=== PATIENT | male | born 1985 | race Caucasian/White ===

== ENCOUNTER 2017-12-15 04:53 | Emergency (ER) | payer SELFPAY ==
[2017-12-15] MEDS ORDERED: LIDOCAINE 2% VISCOUS SOLN 20 ML UDCUP PO ONE (05:22)
--- NOTE | 2017-12-15 05:22 | ER Document Report ---
HPI - HPI Pain Level: 5 Notes: Patient is a 32-year-old male with no significant past medical history presents to the ED complaining of dental pain to #92-3 days. Patient states that he was planning on visiting a dentist on Tuesday for treatment. Patient states that he has not noticed any obvious swelling, abscess, or purulent discharge. He is otherwise still eating and drinking without difficulties. He is urinating normally and having normal bowel movements. Denies any other recent illness. Denies any allergies to antibiotics. Denies any headache, fever, head injury, neck pain, URI, sore throat, chest pain, palpitations, syncope, cough, shortness of breath, wheeze, dyspnea, abdominal pain, nausea/vomiting/ diarrhea, urinary retention, dysuria, hematuria, or rash. - ROS Systems Reviewed and Negative: Yes All other systems reviewed and negative - EENT EENT: DENIES: Sore Throat, Ear Pain, Eye problems - NEURO Neurology: DENIES: Headache - CARDIOVASCULAR Cardiovascular: DENIES: Chest pain - RESPIRATORY Respiratory: DENIES: Trouble Breathing, Coughing - GASTROINTESTINAL Gastrointestinal: DENIES: Abdominal Pain, Black / Bloody Stools - URINARY Urinary: DENIES: Dysuria, Urgency, Frequency - MUSCULOSKELETAL Musculoskeletal: DENIES: Extremity pain Past Medical History - Social History Smoking Status: Current Every Day Smoker Frequency of alcohol use: None Drug Abuse: None Family History: Reviewed & Not Pertinent, Other - none Patient has suicidal ideation: No Patient has homicidal ideation: No Renal/ Medical History: Denies: Hx Peritoneal Dialysis - Immunizations Immunizations up to date: Yes Hx Diphtheria, Pertussis, Tetanus Vaccination: No Vertical Provider Document - CONSTITUTIONAL Agree With Documented VS: Yes Notes: PHYSICAL EXAMINATION: GENERAL: Well-appearing, well-nourished and in no acute distress. HEAD: Atraumatic, normocephalic. EYES: Pupils equal round and reactive to light, extraocular movements intact, sclera anicteric, conjunctiva are normal. ENT: EAC clear b/l. TM's intact b/l without erythema, fluid, or perforation. Nares patent and without discharge. oropharynx clear without exudates. No tonsilar hypertrophy or erythema. Moist mucous membranes. No sinus tenderness. Uvula midline. No palatine shift. No tongue protrusion. No respiratory compromise. Mouth: Poor dentition. + moderate/severe decay and mild gingivitis. No obvious abscess or discharge noted. No facial swelling. + tenderness to tooth #9. NECK: Normal range of motion, supple without lymphadenopathy. No rigidity/ meningismus. LUNGS: Breath sounds clear to auscultation bilaterally and equal. No wheezes rales or rhonchi. HEART: Regular rate and rhythm without murmurs, rubs, gallops. NEUROLOGICAL: Cranial nerves grossly intact. Normal speech, normal gait. Normal sensory, motor exams PSYCH: Normal mood, normal affect. SKIN: Warm, Dry, normal turgor, no rashes or lesions noted. - INFECTION CONTROL TRAVEL OUTSIDE OF THE [place] IN LAST 30 DAYS: No - RESPIRATORY O2 Sat by Pulse Oximetry: 97 Course - Re-evaluation Re-evalutation: 12/15/17 05:20 Patient is an afebrile, well-hydrated, 32-year-old male who presents to the ED with dental pain, suspect nerve root etiology versus infection. Vitals are acceptable. PE is otherwise unremarkable. No labs or imaging warranted at this time based on H&P. Low suspicion for any meningitis, sepsis, peritonsillar /pharyngeal abscess, respiratory compromise, Silas's, temporal arteritis, or other emergent systemic condition at this time. Patient is aware this condition can change from initial presentation and he needs to monitor symptoms closely. I will send him home with a prescription for penicillin and viscous lidocaine. Conservative measures otherwise for symptoms. Call to schedule an appointment with a dentist for further evaluation and management. Recheck with your PCM this week as well. Return to the ED with any worsening/concerning symptoms otherwise as reviewed in discharge. Patient is in agreement. - Vital Signs Vital signs: Temp Pulse Resp BP Pulse Ox 97.8 F 88 16 132/82 H 97 12/15/17 04:58 12/15/17 04:58 12/15/17 04:58 12/15/17 04:58 12/15/17 04:58 Discharge - Discharge Clinical Impression: Toothache Condition: Stable Disposition: HOME, SELF-CARE Instructions: Penicillin V K (OM), Toothache ([facility]) Additional Instructions: [place] and floss twice daily Maintain fluid intake Take antibiotics as directed Mouthwash, salt water gargles, peroxide rinse as needed Tylenol/ibuprofen as needed Recheck with PCM this week Call today/tomorrow and schedule an appointment with your dentist for further evaluation Return to the ED with any worsening symptoms and/or development of fever, headache, facial swelling, swelling of lips/tongue/throat, trouble swallowing, drooling, hoarseness, neck pain/stiffness, chest pain, palpitations, syncope, shortness of breath, trouble breathing, abdominal pain, n/v/d, numbness/tingling , or other worsening symptoms that are concerning to you. Prescriptions: Penicillin V Potassium [Penicillin Vk 250 mg Tablet] 500 mg PO BID #40 tablet Forms: Elevated Blood Pressure, Smoking Cessation Education Referrals: [facility] [Provider Group] - Follow up as needed [facility] [Provider Group] - Follow up as needed
[2017-12-15 06:41] VITALS: BP 144/83
== END 2017-12-15 06:27 | disposition home or self-care (01) ==
LOC: ER 04:53
DX: K02.9 Dental caries, unspecified (principal); K05.10 Chronic gingivitis, plaque induced; K08.89 Other specified disorders of teeth and supporting structures; F17.200 Nicotine dependence, unspecified, uncomplicated
CPT/HCPCS: 99282; J3490

== ENCOUNTER 2018-07-04 20:30 | Emergency (ER) | payer SELFPAY ==
[2018-07-04] MEDS ORDERED: FENTANYL CITRATE INJ/PF 100 MCG/2 ML AMPUL IV ONE (20:58)
--- NOTE | 2018-07-04 21:04 | ER Document Report ---
ED General - General TRAVEL OUTSIDE OF THE [place] IN LAST 30 DAYS: No <ROBBI SAL - Last Filed: 07/05/18 07:19> <ABDIEL DAY - Last Filed: 07/05/18 19:22> - General Stated Complaint: FOOT PAIN Time Seen by Provider: 07/04/18 20:40 - HPI Notes: Patient is a 33-year-old male with no significant past medical history who presents to the ED by EMS and [facility] ED after being found in the [place] after 4 days. Patient was a missing person at that time. Patient was found naked and excoriated throughout his body. Patient states that he was running from his qmlgoqb-hq-oan who tried to kill him with rat poison. Patient states that he has severe pain in his feet as he was barefoot throughout the buck and has thorns everywhere. Patient states that he is hungry and thirsty as well. He does have some soreness generalized with his chest and abdomen as well. JVD states that he has been having hallucinations. Patient is adamantly denying any drug use. Denies any headache, fever, head injury, neck pain, changes in vision/speech/hearing, URI, sore throat, palpitations, syncope, cough, shortness of breath, wheeze, dyspnea, diarrhea, urinary retention, dysuria, hematuria, loss of control of bowel or bladder, numbness/tingling, saddle anesthesia, muscle paralysis/weakness. Speaking with the booking police officer he was called to an [facility] residents for a white male walking around naked. He found the patient was very cooperative. He did tell the booking police officer that what triggered his event was walking in on his [id number], whom he idolizes, in an orgy. He told him that he was convinced that his aptyrlj-zr-lxd was trying to kill him at that point and poisoned him with rat poison. The booking police officer did notice that he was carrying around a jug of water, but offered a new bottle. Please officer states that he witnessed the patient listening for the crack of the seal and then sniffing the In making the booking police officer shined a light on the water. After he deemed it safe, he drink the entire bottle. Please officer states that he has been acting very paranoid and anxious. (ROBBI SAL) - Related Data Allergies/Adverse Reactions: codeine [Codeine] Allergy (Verified 09/15/15 06:50) Past Medical History - Social History Smoking Status: Unknown if Ever Smoked Family History: Reviewed & Not Pertinent, Other - none Renal/ Medical History: Denies: Hx Peritoneal Dialysis - Immunizations Immunizations up to date: Yes Hx Diphtheria, Pertussis, Tetanus Vaccination: No <ROBBI SAL - Last Filed: 07/05/18 07:19> Review of Systems - Review of Systems -: Yes All other systems reviewed and negative <ROBBI SAL - Last Filed: 07/05/18 07:19> Physical Exam <ROBBI SAL - Last Filed: 07/05/18 07:19> <ABDIEL DAY - Last Filed: 07/05/18 19:22> - Vital signs Vitals: Temp Pulse Resp BP Pulse Ox 98.2 F 118 H 20 130/90 H 100 07/04/18 20:40 07/04/18 20:40 07/04/18 20:40 07/04/18 20:40 07/04/18 20:40 - Notes Notes: PHYSICAL EXAMINATION: GENERAL: Pt does not appear well. He has exoriations covering his entire body and thorns embedded in the soles of his feet. His lips look dry and his fingers /toes are pruned. A&Ox4. Answers questions appropriately. He keeps mentioning that his brother in law could not kill him during my eval. HEAD: Atraumatic, normocephalic. Non-tender. EYES: Pupils equal round and reactive to light, extraocular movements intact, sclera anicteric, conjunctiva are normal. No nystagmus. vis carter intact. ENT: EAC clear b/l. TM's intact b/l without erythema, fluid, or perforation. Nares patent and without discharge. oropharynx clear without exudates. No tonsilar hypertrophy or erythema. Moist mucous membranes. NECK: Normal range of motion, supple without lymphadenopathy. No rigidity/ meningismus. No midline tenderness. LUNGS: Breath sounds clear to auscultation bilaterally and equal. No wheezes rales or rhonchi. HEART: Regular rate and rhythm without murmurs, rubs, gallops. ABDOMEN: Soft, nondistended abdomen. No guarding, no rebound. Normal bowel sounds present. No CVA tenderness bilaterally. + generalized tenderness. Musculoskeletal: Ext b/l: FROM to passive/active. Strength 5+/5. No deficits noted. No bony tenderness of extremities. Extremities: No cyanosis, clubbing, or edema b/l. Peripheral pulses 2+. Capillary refill less than 2 seconds. NEUROLOGICAL: NIH 0. GCS 15. Cranial nerves grossly intact. Normal speech. Normal sensory, motor exams. Reflexes 2+ b/l. TRINITY's negative. Pronator drift negative. Heel/ricardo, finger/nose wnl. Rhomberg neg. PSYCH: anxious, acting paranoid SKIN: see above. + generalized maculopapular rash noted. excoriations everywhere. embedded thorns in his feet. (ROBBI SAL) Course - Laboratory Result Diagrams: 07/04/18 21:45 07/05/18 02:16 <ROBBI SAL - Last Filed: 07/05/18 07:19> - Laboratory Result Diagrams: 07/05/18 17:26 07/05/18 17:26 <ABDIEL DAY - Last Filed: 07/05/18 19:22> - Re-evaluation Re-evalutation: 07/04/18 21:55 Dr. Vieira was consulted who also eval'd the patient. Labs and imaging ordered. Patient possibly meets IVC protocol for danger to self for unpredictable thoughts/behavior with associated paranoia/anxiety. We will have Psych eval in the morning if he is still here. Haldol, antibiotics, and fluids have also been ordered. We will start trying to get the obvious thorns from his feet, but will not dig for the embedded pieces. This patient will most likely be a medical admit. 07/05/18 00:21 pt has a significant uremia and JOSE LUIS with elevated CK and LFT's, hypernatremia/ kalemia, lactic acidosis, leukocytosis, and a gap. Fluids have been going since arrival. pt is currently comfortable. Vitals acceptable. Reviewed with our hospitalist- no nephro and pt will need dialysis. Recommends transfer. Spoke with Nat Hussein, Dr. Warren, who accepted pt, but is on a wait list. Spoke with Kishor and am awaiting a call back. 07/05/18 01:20 Spoke with Kishor Cornell, who would like another BMP performed. Consider admit to our hospital with improvement as she believes fluids is all he needs and does not necessarily warrant dialysis at this time. We are to call [facility] back pending lab result, but they are willing to accept if needed. 07/05/18 05:50 BMP shows some improvement in the Creatinine and potassium. [facility] Foreman, called me back and accepted patient. Pt is awake and requesting food and water. He would also prefer to go to [place] at this time so we will cancel the [facility] transfer. Vitals are acceptable. Pt has no new concerns or complaints. 07/05/18 07:03 Transfer of care at bedside to Donnell Day PA-C. (ROBBI SAL) 07/05/18 08:51 This is Herbert Day physician environmental services assistant I have taken over care of this patient from Robbi Sal nighttime APC. Robbi has at this time Relayed patient's history to me and plan of care. We are awaiting transfer of patient to [place] secondary to renal failure and psychiatric counseling. On my exam this morning patient is awake and alert and answering questions appropriately. Physical exam also shows him to have multiple abrasions and scratches extending over all the body. This still appears to be some small splinters or thistles in the bottom of his feet. Currently patient states he is feeling okay and he is looking forward to his transfer to [place]. We will reassess him prior to his discharge and transfer to [place] 07/05/18 19:17 This is Herbert Day physician environmental services assistant. I have been taking care of patient throughout the day and he is finally been accepted to [facility] and is preparing to be transported. I have checked in on patient several times today he has been resting comfortably and is not as of most recently approximately 30 minutes ago I have rechecked on him again talking with him after he received pain medication. I have been in earlier patient was getting a little upset and agitated his pain level was increasing so I gave him 5 of morphine IV along with 25 of Benadryl. He relax substantially. So I have checked on him recently I am giving him clearance to be transported from our facility to [facility] for further care. He is stable for this trip by EMS. (ABDIEL DAY) - Vital Signs Vital signs: Temp Pulse Resp BP Pulse Ox 97.5 F 103 H 15 135/93 H 99 07/05/18 17:16 07/05/18 00:01 07/05/18 18:01 07/05/18 18:00 07/05/18 18:01 - Laboratory Laboratory results interpreted by me: 07/04/18 07/04/18 07/04/18 21:45 21:45 21:45 WBC 21.2 H Hgb RDW 14.1 H Seg Neutrophils % Seg Neuts % (Manual) 82 H Band Neutrophils % 1 L Lymphocytes % Lymphocytes % (Manual) 7 L Absolute Neutrophils Abs Neuts (Manual) 17.6 H Abs Monocytes (Manual) 1.7 H PT VBG pCO2 VBG HCO3 Sodium 151.9 H Potassium 5.9 H Chloride 111 H Carbon Dioxide 17 L Anion Gap 24 H BUN 151 H Creatinine 9.01 H Est GFR ( Amer) 8 L Est GFR (Non-Af Amer) 7 L Glucose Lactic Acid 2.2 H Magnesium 4.0 H Total Bilirubin 1.4 H Direct Bilirubin 0.8 H AST 138 H ALT 116 H Creatine Kinase 7499 H Total Protein 8.5 H Urine Protein Urine Glucose (UA) Urine Ketones Urine Blood 07/04/18 07/04/18 07/05/18 21:45 22:52 02:16 WBC Hgb RDW Seg Neutrophils % Seg Neuts % (Manual) Band Neutrophils % Lymphocytes % Lymphocytes % (Manual) Absolute Neutrophils Abs Neuts (Manual) Abs Monocytes (Manual) PT 15.6 H VBG pCO2 34.9 L VBG HCO3 16.9 L Sodium 152.5 H Potassium 5.5 H Chloride 115 H Carbon Dioxide 19 L Anion Gap BUN 148 H Creatinine 6.88 H Est GFR ( Amer) 11 L Est GFR (Non-Af Amer) 9 L Glucose 113 H Lactic Acid Magnesium Total Bilirubin Direct Bilirubin AST ALT Creatine Kinase Total Protein Urine Protein Urine Glucose (UA) Urine Ketones Urine Blood 07/05/18 07/05/18 07/05/18 03:44 17:26 17:26 WBC 11.9 H Hgb 13.2 L RDW Seg Neutrophils % 79.6 H Seg Neuts % (Manual) Band Neutrophils % Lymphocytes % 10.2 L Lymphocytes % (Manual) Absolute Neutrophils 9.4 H Abs Neuts (Manual) Abs Monocytes (Manual) PT VBG pCO2 VBG HCO3 Sodium 146.9 H Potassium Chloride 109 H Carbon Dioxide Anion Gap BUN 109 H D Creatinine 3.47 H Est GFR ( Amer) 25 L Est GFR (Non-Af Amer) 20 L Glucose 139 H Lactic Acid Magnesium Total Bilirubin Direct Bilirubin AST 103 H ALT 93 H Creatine Kinase Total Protein Urine Protein 100 H Urine Glucose (UA) 150 H Urine Ketones TRACE H Urine Blood LARGE H Critical Care Note - Critical Care Note Total time excluding time spent on procedures (mins): 65 - >60 minutes <ROBBI SAL - Last Filed: 07/05/18 07:19> Discharge <ROBBI SAL - Last Filed: 07/05/18 07:19> <ABDIEL DAY - Last Filed: 07/05/18 19:22> - Discharge Clinical Impression: JOSE LUIS (acute kidney injury), Uremia, Hypernatremia, Hyperkalemia Rhabdomyolysis Qualifiers: Rhabdomyolysis type: non-traumatic Qualified Code(s): M62.82 - Rhabdomyolysis Leukocytosis Qualifiers: Leukocytosis type: unspecified Qualified Code(s): D72.829 - Elevated white blood cell count, unspecified Condition: Stable Disposition: [facility]
[2018-07-04] MEDS ORDERED: HALOPERIDOL LACTATE INJ 5 MG/1 ML VIAL IV ONE (21:39)
[2018-07-04] MEDS ORDERED: CEPHALEXIN 500 MG CAPSULE PO ONE (21:43)
[2018-07-04] MEDS: NORMAL SALINE 1000 ML 1,000 ML IV PRN ×2 (21:43→23:15)
[2018-07-04 22:33] LABS: HEMATOCRIT 45.2 % (37.9-51.0); HEMOGLOBIN 15.2 g/dL (13.5-17.0); MEAN CORPUSCULAR HEMOGLOBIN 29.9 pg (27.0-33.4); MEAN CORPUSCULAR HGB CONC 33.6 g/dL (32.0-36.0); MEAN CORPUSCULAR VOLUME 89 fl (80-97); PLATELET COUNT 339 10^3/uL (150-450); RED BLOOD COUNT 5.07 10^6/uL (4.35-5.55); RED CELL DISTRIBUTION WIDTH 14.1 % (11.5-14.0); WHITE BLOOD COUNT 21.2 10^3/uL (4.0-10.5)
[2018-07-04 22:36] LABS: INTERNATIONAL RATION (INR) 1.18; PROTHROMBIN TIME 15.6 SEC (11.4-15.4)
[2018-07-04 22:37] LABS: PARTIAL THROMBOPLASTIN TIME 32.6 SEC (23.5-35.8)
[2018-07-04 22:45] LABS: ALANINE AMINOTRANSFERASE 116 U/L (21-72); ALKALINE PHOSPHATASE 84 U/L (38-126); ASPARTATE AMINO TRANSFERASE 138 U/L (17-59); BILIRUBIN,DIRECT 0.8 mg/dL (0.0-0.4); BILIRUBIN,TOTAL 1.4 mg/dL (0.2-1.3); CALCIUM 9.2 mg/dL (8.4-10.2); GLUCOSE 106 mg/dL (75-110); POTASSIUM 5.9 mmol/L (3.6-5.0); TOTAL PROTEIN 8.5 g/dL (6.3-8.2)
[2018-07-04 22:49] LABS: CARBON DIOXIDE 17 mmol/L (22-30); CHLORIDE 111 mmol/L (98-107); SODIUM 151.9 mmol/L (137-145)
[2018-07-04 22:52] LABS: ABSOLUTE LYMPHOCYTES# (MANUAL) 1.9 10^3/uL (0.5-4.7); ABSOLUTE MONOCYTES # (MANUAL) 1.7 10^3/uL (0.1-1.4); ABSOLUTE NEUTROPHILS# (MANUAL) 17.6 10^3/uL (1.7-8.2); BAND NEUTROPHILS % (MANUAL) 1 % (3-5); BASOPHILS % (MANUAL) 0 % (0-2); EOSINOPHILS % (MANUAL) 0 % (0-6); LYMPHOCYTES % (MANUAL) 7 % (13-45); MONOCYTES % (MANUAL) 8 % (3-13); SEGMENTED NEUTROPHILS % (MAN) 82 % (42-78); TOTAL CELLS COUNTED 100
[2018-07-04 22:54] LABS: ANISOCYTOSIS SLIGHT; PLATELET COMMENT ADEQUATE
[2018-07-04 23:00] LABS: ALCOHOL < 10 mg/dL (NONE DETECTED); ANION GAP 24 (5-19); BLOOD UREA NITROGEN 151 mg/dL (7-20)
[2018-07-04 23:24] LABS: CREATINE KINASE 7499 U/L (55-170)
--- NOTE | 2018-07-04 23:54 | RADIOLOGY REPORT (SQ) ---
XR CHEST 1 VIEW HISTORY: Chest pain. COMPARISON: 03/05/2015 FINDINGS/IMPRESSION: Normal cardiomediastinal silhouette. Pulmonary vasculature is unremarkable. Lungs are clear. No pleural effusion or pneumothorax is seen. No acute osseous findings.
[2018-07-05 00:02] LABS: VENOUS BLOOD BASE EXCESS -8.4 mmol/L; VENOUS BLOOD HCO3 16.9 mmol/L (20-32); VENOUS BLOOD PCO2 34.9 mmHg (35-63); VENOUS BLOOD PH 7.3 (7.30-7.42)
[2018-07-05 00:04] LABS: LIPASE 124.2 U/L (23-300)
[2018-07-05] MEDS ORDERED: NORMAL SALINE 1000 ML 1,000 ML IV PRN (01:19)
[2018-07-05] MEDS ORDERED: NORMAL SALINE 1000 ML 1,000 ML IV ONE (01:19)
[2018-07-05 02:56] LABS: ANION GAP 19 (5-19); CALCIUM 8.5 mg/dL (8.4-10.2); CARBON DIOXIDE 19 mmol/L (22-30); CHLORIDE 115 mmol/L (98-107); GLUCOSE 113 mg/dL (75-110); POTASSIUM 5.5 mmol/L (3.6-5.0); SODIUM 152.5 mmol/L (137-145)
[2018-07-05 03:13] LABS: BLOOD UREA NITROGEN 148 mg/dL (7-20)
[2018-07-05] MEDS ORDERED: DEXTROSE 5%-1/2 NORMAL SALINE 500 ML IV PRN (03:18)
[2018-07-05 04:52] LABS: APPEARANCE,URINE TURBID; BILIRUBIN,URINE NEGATIVE (NEGATIVE); GLUCOSE, URINE 150 mg/dL (NEGATIVE); KETONES,URINE TRACE mg/dL (NEGATIVE); LEUKOCYTE ESTERASE,URINE NEGATIVE (NEGATIVE); NITRITE,URINE NEGATIVE (NEGATIVE); PROTEIN,URINE 100 mg/dL (NEGATIVE); UROBILINOGEN,URINE NEGATIVE mg/dL (<2.0)
[2018-07-05 04:53] LABS: COLOR,URINE YELLOW
[2018-07-05 05:06] LABS: URINE AMPHETAMINES SCREEN NEGATIVE; URINE BARBITURATES SCREEN NEGATIVE; URINE BENZODIAZEPINES SCREEN NEGATIVE; URINE COCAINE SCREEN NEGATIVE; URINE MARIJUANA (THC) SCREEN UNCONFIRMED POSITIVE; URINE METHADONE SCREEN NEGATIVE; URINE PHENCYCLIDINE SCREEN NEGATIVE
[2018-07-05] MEDS ORDERED: CEPHALEXIN 500 MG CAPSULE PO ONE (07:11)
[2018-07-05] MEDS ORDERED: DIPH/PERTUSS(ACELL)/TETANUS VAC/PF 0.5 ML SYR (>=10YO) IM ONE (07:18)
--- NOTE | 2018-07-05 07:55 | EKG REPORT ---
SEVERITY:- OTHERWISE NORMAL ECG - SINUS TACHYCARDIA ST ELEV, PROBABLE NORMAL EARLY REPOL PATTERN : Confirmed by: Liudmila Larose MD 05-Jul-2018 07:55:04
[2018-07-05] MEDS ORDERED: 1/2 NORMAL SALINE 1,000 ML IV ONE (08:50)
[2018-07-05] MEDS ORDERED: HYDROCODONE/ACETAMINOPHEN 5-325 MG TABLET PO ONE (10:11)
[2018-07-05] MEDS ORDERED: MORPHINE SULFATE 10 MG/ML INJ IV ONE (17:06)
[2018-07-05] MEDS ORDERED: DIPHENHYDRAMINE HCL 50 MG/ML VIAL IV ONE (17:07)
[2018-07-05 17:33] LABS: ABSOLUTE BASOPHILS # (AUTO) 0.1 10^3/uL (0.0-0.2); ABSOLUTE EOSINOPHILS # (AUTO) 0.3 10^3/uL (0.0-0.6); ABSOLUTE LYMPHOCYTES (AUTO) 1.2 10^3/uL (0.5-4.7); ABSOLUTE MONOCYTES (AUTO) 0.9 10^3/uL (0.1-1.4); ABSOLUTE NEUT (AUTO) 9.4 10^3/uL (1.7-8.2); BASOPHILS % (AUTO) 0.5 % (0-2); EOSINOPHILS % (AUTO) 2.5 % (0-6); HEMATOCRIT 39.1 % (37.9-51.0); HEMOGLOBIN 13.2 g/dL (13.5-17.0); LYMPHOCYTES % (AUTO) 10.2 % (13-45); MEAN CORPUSCULAR HGB CONC 33.6 g/dL (32.0-36.0); MEAN CORPUSCULAR VOLUME 89 fl (80-97); MONOCYTES % (AUTO) 7.2 % (3-13); PLATELET COUNT 270 10^3/uL (150-450); RED BLOOD COUNT 4.39 10^6/uL (4.35-5.55); RED CELL DISTRIBUTION WIDTH 13.8 % (11.5-14.0); SEGMENTED NEUTROPHILS % (AUTO) 79.6 % (42-78); TOTAL CELLS COUNTED % (AUTO) 100 %; WHITE BLOOD COUNT 11.9 10^3/uL (4.0-10.5)
[2018-07-05 17:48] LABS: ALANINE AMINOTRANSFERASE 93 U/L (21-72); ALBUMIN 4.1 g/dL (3.5-5.0); ALKALINE PHOSPHATASE 77 U/L (38-126); ANION GAP 13 (5-19); ASPARTATE AMINO TRANSFERASE 103 U/L (17-59); BILIRUBIN,DIRECT 0.4 mg/dL (0.0-0.4); BILIRUBIN,TOTAL 0.9 mg/dL (0.2-1.3); CALCIUM 9.2 mg/dL (8.4-10.2); CARBON DIOXIDE 25 mmol/L (22-30); CHLORIDE 109 mmol/L (98-107); GLUCOSE 139 mg/dL (75-110); SODIUM 146.9 mmol/L (137-145); TOTAL PROTEIN 7.1 g/dL (6.3-8.2)
[2018-07-05 18:03] LABS: POTASSIUM 4.6 mmol/L (3.6-5.0)
[2018-07-05 18:19] LABS: BLOOD UREA NITROGEN 109 mg/dL (7-20)
[2018-07-05 20:16] VITALS: BP 127/76
== END 2018-07-05 20:57 | disposition short-term general hospital (02) ==
LOC: EEVIPCON 20:30 → ER 20:30
DX: N17.9 Acute kidney failure, unspecified (principal); E87.0 Hyperosmolality and hypernatremia; E87.6 Hypokalemia; E87.5 Hyperkalemia; M62.82 Rhabdomyolysis; D72.829 Elevated white blood cell count, unspecified; E87.2 Acidosis; F22 Delusional disorders; F41.9 Anxiety disorder, unspecified; R79.89 Other specified abnormal findings of blood chemistry; S90.852A Superficial foreign body, left foot, initial encounter; S90.851A Superficial foreign body, right foot, initial encounter; T14.8XXA Other injury of unspecified body region, initial encounter; X58.XXXA Exposure to other specified factors, initial encounter; M79.671 Pain in right foot; M79.672 Pain in left foot; R10.817 Generalized abdominal tenderness; R09.89 Other specified symptoms and signs involving the circulatory and respiratory systems; R21 Rash and other nonspecific skin eruption; Z88.5 Allergy status to narcotic agent
CPT/HCPCS: 93005; 99285; 96361; 90471; 96374; 96375; 36415; 87040; 80307 ×2; 82550; 83605; 83690; 83735; 85025; 85610; 85730; 87077; 80048; 80053; 81001; 87186; 82803; 71045; 90715; 93010; J1200; J3010; J1630; J2270

== ENCOUNTER 2018-12-19 13:32 | Emergency (ER) | payer SELFPAY ==
--- NOTE | 2018-12-19 16:00 | EKG REPORT ---
SEVERITY:- NORMAL ECG - SINUS RHYTHM ST ELEV, PROBABLE NORMAL EARLY REPOL PATTERN : Confirmed by: Jl Lopez MD 19-Dec-2018 15:59:44
[2018-12-19] MEDS ORDERED: ASPIRIN 81 MG TABLET, CHEWABLE PO ONE (16:05)
--- NOTE | 2018-12-19 16:09 | ER Document Report ---
ED Medical Screen (RME) - General Chief Complaint: Arm Pain Stated Complaint: LEFT ARM PAIN Time Seen by Provider: 12/19/18 16:04 Mode of Arrival: Ambulatory Information source: Patient Notes: 33-year-old very pleasant male with history of endocarditis presents with chest pain and left arm pain. Please see below note from previous visit. Patient did have a transfer to [facility] in June 2018 after being found after missing for 4 days. Previous provider note Patient is a 33-year-old male with no significant past medical history who presents to the ED by EMS and [facility] ED after being found in the buck after 4 days. Patient was a missing person at that time. Patient was found naked and excoriated throughout his body. Patient states that he was running from his znxbqwb-ve-ask who tried to kill him with rat poison. Patient states that he has severe pain in his feet as he was barefoot throughout the buck and has thorns everywhere. Patient states that he is hungry and thirsty as well. He does have some soreness generalized with his chest and abdomen as well. JVD states that he has been having hallucinations. Patient is adamantly denying any drug use. Denies any headache, fever, head injury, neck pain, changes in vision/speech/hearing, URI, sore throat, palpitations, syncope, cough, shortness of breath, wheeze, dyspnea, diarrhea, urinary retention, dysuria, hematuria, loss of control of bowel or bladder, numbness/tingling, saddle anesthesia, muscle paralysis/weakness. Speaking with the staff electronic warfare officer he was called to an [facility] residents for a white male walking around naked. He found the patient was very cooperative. He did tell the staff electronic warfare officer that what triggered his event was walking in on his plcvdlz-jj-iit, whom he idolizes, in an orgy. He told him that he was convinced that his zzteerm-ov-hpk was trying to kill him at that point and poisoned him with rat poison. The staff electronic warfare officer did notice that he was carrying around a jug of water, but offered a new bottle. Please officer states that he witnessed the patient listening for the crack of the seal and then sniffing the In making the staff electronic warfare officer shined a light on the water. After he deemed it safe, he drink the entire bottle. Please officer states that he has been acting very paranoid and anxious. I have greeted and performed a rapid initial assessment of this patient. A comprehensive ED assessment and evaluation of the patient, analysis of test results and completion of medical decision making process we will be contacted by additional ED providers. PHYSICAL EXAMINATION: Vital signs reviewed GENERAL: Well-appearing, well-nourished and in no acute distress. Cardiac: Regular rate rhythm, no murmurs LUNGS: No respiratory distress Musculoskeletal: Normal range of motion NEUROLOGICAL: Normal speech, normal gait. PSYCH: Normal mood, normal affect. SKIN: Warm, Dry, normal turgor, no rashes or lesions noted. TRAVEL OUTSIDE OF THE [place] IN LAST 30 DAYS: No - HPI Onset: Yesterday Onset/Duration: Sudden Quality of pain: Stabbing Severity: Moderate Associated Symptoms: Chest pain, Shortness of breath Exacerbated by: Movement Relieved by: Denies Similar symptoms previously: Yes Recently seen / treated by doctor: No - Related Data Smoking: Cigarettes Frequency of alcohol use: None Drug Abuse: None Allergies/Adverse Reactions: codeine [Codeine] Allergy (Verified 12/19/18 13:32) Past Medical History - Social History Chew tobacco use (# tins/day): No Frequency of alcohol use: None Drug Abuse: None Renal/ Medical History: Denies: Hx Peritoneal Dialysis - Immunizations Immunizations up to date: Yes Hx Diphtheria, Pertussis, Tetanus Vaccination: No Physical Exam - Vital signs Vitals: Temp Pulse Resp BP Pulse Ox 98.0 F 71 16 122/67 99 12/19/18 13:47 12/19/18 13:47 12/19/18 13:47 12/19/18 13:47 12/19/18 13:47 Course - Vital Signs Vital signs: Temp Pulse Resp BP Pulse Ox 98.0 F 71 16 122/67 99 12/19/18 13:47 12/19/18 13:47 12/19/18 13:47 12/19/18 13:47 12/19/18 13:47
--- NOTE | 2018-12-19 16:32 | RADIOLOGY REPORT (SQ) ---
EXAM DESCRIPTION: CHEST 2 VIEWS COMPLETED DATE/TIME: 12/19/2018 4:15 pm REASON FOR STUDY: chest pain h/o endocarditits COMPARISON: None. EXAM PARAMETERS: NUMBER OF VIEWS: two views TECHNIQUE: Digital Frontal and Lateral radiographic views of the chest acquired. RADIATION DOSE: NA LIMITATIONS: none FINDINGS: LUNGS AND PLEURA: No opacities, masses or pneumothorax. No pleural effusion. MEDIASTINUM AND HILAR STRUCTURES: No masses or contour abnormalities. HEART AND VASCULAR STRUCTURES: Heart normal size. No evidence for failure. BONES: No acute findings. HARDWARE: None in the chest. OTHER: No other significant finding. IMPRESSION: 1. NO ACUTE RADIOGRAPHIC FINDING IN THE CHEST. TECHNICAL DOCUMENTATION: JOB ID: [id number] [employer]- All Rights Reserved Reading location - IP/workstation name: [email or web address]
[2018-12-19 17:05] LABS: ABSOLUTE EOSINOPHILS # (AUTO) 0.4 10^3/uL (0.0-0.6); ABSOLUTE LYMPHOCYTES (AUTO) 2.1 10^3/uL (0.5-4.7); ABSOLUTE MONOCYTES (AUTO) 0.4 10^3/uL (0.1-1.4); ABSOLUTE NEUT (AUTO) 3.3 10^3/uL (1.7-8.2); BASOPHILS % (AUTO) 0.6 % (0-2); EOSINOPHILS % (AUTO) 6.2 % (0-6); HEMOGLOBIN 15.5 g/dL (13.5-17.0); LYMPHOCYTES % (AUTO) 32.9 % (13-45); MEAN CORPUSCULAR HEMOGLOBIN 29.4 pg (27.0-33.4); MEAN CORPUSCULAR HGB CONC 34.4 g/dL (32.0-36.0); MEAN CORPUSCULAR VOLUME 86 fl (80-97); MONOCYTES % (AUTO) 7.2 % (3-13); PLATELET COUNT 289 10^3/uL (150-450); RED BLOOD COUNT 5.26 10^6/uL (4.35-5.55); RED CELL DISTRIBUTION WIDTH 13.6 % (11.5-14.0); SEGMENTED NEUTROPHILS % (AUTO) 53.1 % (42-78); TOTAL CELLS COUNTED % (AUTO) 100 %; WHITE BLOOD COUNT 6.3 10^3/uL (4.0-10.5)
[2018-12-19 17:28] LABS: ALANINE AMINOTRANSFERASE 22 U/L (21-72); ALBUMIN 4.8 g/dL (3.5-5.0); ALKALINE PHOSPHATASE 67 U/L (38-126); ANION GAP 12 (5-19); ASPARTATE AMINO TRANSFERASE 20 U/L (17-59); BILIRUBIN,DIRECT 0.4 mg/dL (0.0-0.4); BILIRUBIN,TOTAL 0.7 mg/dL (0.2-1.3); BLOOD UREA NITROGEN 14 mg/dL (7-20); CALCIUM 10.3 mg/dL (8.4-10.2); CARBON DIOXIDE 28 mmol/L (22-30); CHLORIDE 99 mmol/L (98-107); CREATINE KINASE 67 U/L (55-170); GLUCOSE 101 mg/dL (75-110); SODIUM 138.6 mmol/L (137-145); TOTAL PROTEIN 7.4 g/dL (6.3-8.2)
[2018-12-19 17:43] LABS: TROPONIN I < 0.012 ng/mL
[2018-12-19 18:45] LABS: INTERNATIONAL RATION (INR) 0.94; PROTHROMBIN TIME 13.1 SEC (11.4-15.4)
[2018-12-19 18:46] LABS: PARTIAL THROMBOPLASTIN TIME 31.7 SEC (23.5-35.8)
[2018-12-19 19:50] VITALS: BP 119/80
--- NOTE | 2018-12-19 20:00 | ER Document Report ---
ED General - General Chief Complaint: Arm Pain Stated Complaint: LEFT ARM PAIN Time Seen by Provider: 12/19/18 16:04 Primary Care Provider: LUZ ELENA LINDQUIST MD [ACTIVE STAFF] - Follow up as needed Mode of Arrival: Ambulatory Notes: 33 y/o male with chest pain and left arm/hand tingling. On and off for several days. Nothing makes it worse. No fever, No SOB, no trauma TRAVEL OUTSIDE OF THE [place] IN LAST 30 DAYS: No - HPI Onset: Yesterday Onset/Duration: Better Quality of pain: Achy Severity: Mild Pain Level: 1 - Related Data Allergies/Adverse Reactions: codeine [Codeine] Allergy (Verified 12/19/18 13:32) Past Medical History - General Information source: Patient - Social History Smoking Status: Current Every Day Smoker Chew tobacco use (# tins/day): No Frequency of alcohol use: None Drug Abuse: None Family History: Reviewed & Not Pertinent, Other - none Patient has suicidal ideation: No Patient has homicidal ideation: No - Past Medical History Cardiac Medical History: Reports: Other - endocarditis Renal/ Medical History: Denies: Hx Peritoneal Dialysis - Immunizations Immunizations up to date: Yes Hx Diphtheria, Pertussis, Tetanus Vaccination: No Review of Systems - Review of Systems Constitutional: denies: Fever, Malaise, Weakness EENT: See HPI. denies: Eye pain, Throat pain, Difficulty swallowing Cardiovascular: Chest pain. denies: Palpitations, Heart racing, Orthopnea Respiratory: denies: Cough, Hurts to breathe, Short of breath Gastrointestinal: denies: Abdominal pain, Diarrhea, Nausea Musculoskeletal: Muscle pain. denies: Back pain, Muscle stiffness, Neck pain Skin: denies: Dryness, Lesions, Rash Hematologic/Lymphatic: denies: Blood clots, Easy bleeding, Easy bruising Neurological/Psychological: denies: Confusion, Weakness, Numbness Physical Exam - Vital signs Vitals: Temp Pulse Resp BP Pulse Ox 98.0 F 71 16 122/67 99 12/19/18 13:47 12/19/18 13:47 12/19/18 13:47 12/19/18 13:47 12/19/18 13:47 Interpretation: Normal - General General appearance: Appears well, Alert - HEENT Head: Normocephalic, Atraumatic Eyes: Normal Pupils: PERRL - Respiratory Respiratory status: No respiratory distress Chest status: Nontender Breath sounds: Normal Chest palpation: Normal - Cardiovascular Rhythm: Regular Heart sounds: Normal auscultation Murmur: No - Abdominal Inspection: Normal Distension: No distension Bowel sounds: Normal Tenderness: Nontender Organomegaly: No organomegaly - Back Back: Normal, Nontender - Extremities General upper extremity: Normal inspection, Nontender, Normal color, Normal ROM, Normal temperature General lower extremity: Normal inspection, Nontender, Normal color, Normal ROM, Normal temperature, Normal weight bearing. No: Felix's sign - Neurological Neuro grossly intact: Yes Cognition: Normal Orientation: AAOx4 [place] Coma Scale Eye Opening: Spontaneous [place] Coma Scale Verbal: Oriented Maximus Coma Scale Motor: Obeys Commands Maximsu Coma Scale Total: 15 Speech: Normal Motor strength normal: LUE, RUE, LLE, RLE Sensory: Normal - Psychological Associated symptoms: Normal affect, Normal mood - Skin Skin Temperature: Warm Skin Moisture: Dry Skin Color: Normal Course - Re-evaluation Re-evalutation: 12/19/18 23:55 labs unremarkable, cxr normal. No significant findings. Will d/c with op f/u 12/19/18 23:56 Laboratory 12/19/18 12/19/18 12/19/18 16:45 16:45 16:45 WBC 6.3 RBC 5.26 Hgb 15.5 Hct 45.0 MCV 86 MCH 29.4 MCHC 34.4 RDW 13.6 Plt Count 289 Seg Neutrophils % 53.1 Lymphocytes % 32.9 Monocytes % 7.2 Eosinophils % 6.2 H Basophils % 0.6 Absolute Neutrophils 3.3 Absolute Lymphocytes 2.1 Absolute Monocytes 0.4 Absolute Eosinophils 0.4 Absolute Basophils 0.0 PT INR APTT Sodium 138.6 Potassium 4.0 Chloride 99 Carbon Dioxide 28 Anion Gap 12 BUN 14 Creatinine 0.97 Est GFR ( Amer) > 60 Est GFR (Non-Af Amer) > 60 Glucose 101 Calcium 10.3 H Total Bilirubin 0.7 Direct Bilirubin 0.4 Neonat Total Bilirubin Not Reportable Neonat Direct Bilirubin Not Reportable Neonat Indirect Bili Not Reportable AST 20 ALT 22 Alkaline Phosphatase 67 Creatine Kinase 67 CK-MB (CK-2) 0.80 Troponin I < 0.012 Total Protein 7.4 Albumin 4.8 12/19/18 16:45 WBC RBC Hgb Hct MCV MCH MCHC RDW Plt Count Seg Neutrophils % Lymphocytes % Monocytes % Eosinophils % Basophils % Absolute Neutrophils Absolute Lymphocytes Absolute Monocytes Absolute Eosinophils Absolute Basophils PT 13.1 INR 0.94 APTT 31.7 Sodium Potassium Chloride Carbon Dioxide Anion Gap BUN Creatinine Est GFR ( Amer) Est GFR (Non-Af Amer) Glucose Calcium Total Bilirubin Direct Bilirubin Neonat Total Bilirubin Neonat Direct Bilirubin Neonat Indirect Bili AST ALT Alkaline Phosphatase Creatine Kinase CK-MB (CK-2) Troponin I Total Protein Albumin Chest X-Ray 12/19/18 16:05 IMPRESSION: 1. NO ACUTE RADIOGRAPHIC FINDING IN THE CHEST. - Vital Signs Vital signs: Temp Pulse Resp BP Pulse Ox 98.0 F 71 18 119/80 97 12/19/18 13:47 12/19/18 13:47 12/19/18 19:30 12/19/18 19:30 12/19/18 19:45 - Laboratory Result Diagrams: 12/19/18 16:45 12/19/18 16:45 Laboratory results interpreted by me: 12/19/18 12/19/18 16:45 16:45 Eosinophils % 6.2 H Calcium 10.3 H - EKG Interpretation by Il EKG shows normal: Sinus rhythm, Sanders, Intervals, QRS Complexes, ST-T Waves Discharge - Discharge Clinical Impression: Chest pain Qualifiers: Chest pain type: unspecified Qualified Code(s): R07.9 - Chest pain, unspecified Condition: Good Disposition: HOME, SELF-CARE Instructions: Chest Pain of Unclear Cause ([facility]) Additional Instructions: Please follow-up with a field marketing representative. In the event your symptoms are getting worse please return. Referrals: LUZ ELENA LINDQUIST MD [ACTIVE STAFF] - Follow up as needed
== END 2018-12-19 20:27 | disposition home or self-care (01) ==
LOC: ER 13:32
DX: R07.9 Chest pain, unspecified (principal); R20.2 Paresthesia of skin; M79.10 Myalgia, unspecified site; F17.200 Nicotine dependence, unspecified, uncomplicated; Z88.5 Allergy status to narcotic agent; Z86.79 Personal history of other diseases of the circulatory system
CPT/HCPCS: 36415; 71046; 80053; 82550; 82553; 84484; 85025; 85610; 85730; 87040; 93005; 93010; 99285

== ENCOUNTER 2019-08-24 02:18 | Emergency (ER) | payer SELFPAY ==
--- NOTE | 2019-08-24 05:04 | RADIOLOGY REPORT (SQ) ---
EXAM DESCRIPTION: XR FOREARM 2 VIEWS COMPLETED DATE/TME: 08/24/2019 00:00 CLINICAL HISTORY: 34 years, Male, bone pain COMPARISON: None. NUMBER OF VIEWS: 2 TECHNIQUE: 2 views right forearm LIMITATIONS: None. FINDINGS: Negative for fracture or dislocation. Soft tissues are unremarkable IMPRESSION: Negative exam copyright 2010 [employer]- All Rights Reserved
[2019-08-24] MEDS ORDERED: IBUPROFEN 800 MG TABLET PO ONE (06:42)
[2019-08-24] MEDS ORDERED: ACETAMINOPHEN 325 MG TABLET PO ONE (08:21)
--- NOTE | 2019-08-24 08:25 | ER Document Report ---
HPI - HPI Time Seen by Provider: 08/24/19 07:58 Pain Level: 5 Context: Patient is a 34-year-old male who presents the emergency department with right hand and forearm pain. He punched a wall yesterday because he was upset. Patient states that he noticed some swelling to his hand. - ROS Systems Reviewed and Negative: Yes All other systems reviewed and negative - MUSCULOSKELETAL Musculoskeletal: REPORTS: Extremity pain - right hand/arm - DERM Skin Color: Normal Past Medical History - General Information source: Patient - Social History Smoking Status: Current Every Day Smoker Frequency of alcohol use: None Drug Abuse: Marijuana Family History: Reviewed & Not Pertinent, Other - none Patient has suicidal ideation: No Patient has homicidal ideation: No Renal/ Medical History: Denies: Hx Peritoneal Dialysis - Immunizations Immunizations up to date: Yes Hx Diphtheria, Pertussis, Tetanus Vaccination: No Vertical Provider Document - CONSTITUTIONAL Agree With Documented VS: Yes Exam Limitations: No Limitations General Appearance: No Apparent Distress - INFECTION CONTROL TRAVEL OUTSIDE OF THE [place] IN LAST 30 DAYS: No - HEENT HEENT: Atraumatic, Normocephalic, PERRLA - NECK Neck: Normal Inspection - CARDIOVASCULAR Cardiovascular: Regular Rate, Regular Rhythm Pulses: Normal: Radial - MUSCULOSKELETAL/EXTREMETIES Musculoskeletal/Extremeties: Tender - Right hand at fourth and fifth metacarpal areas, Edema - Right hand. negative: FROM - Decreased range of motion to right hand - NEURO Level of Consciousness: Awake, Alert, Appropriate - DERM Integumentary: Warm, Dry, No Rash Course - Re-evaluation Re-evalutation: 08/24/19 09:24 Radiologist is recommending a CT of the right hand to further evaluate patient's dislocation of his carpal and metacarpal bones. Capillary refill less than 3 seconds. Radial and ulnar pulses 2+. No vascular compromise noted. 08/24/19 10:49 Patient has an acute comminuted displaced and intra-articular fracture of the hamate with a displaced fracture fragments within the carpometacarpal and intercarpal joints. He also has an acute intra-articular fracture of the proximal third metacarpal. He also has a probable impaction deformity of an anterior dorsal articular surface of the capitate with a hamate. I discussed these findings with Dr. Harrington, the orthopedic surgeon on-call. He states that he would like me to call Dr. Hagan and discuss these findings. 08/24/19 11:[address] Hagan and the patient will follow up with him in the office. Patient is in agreement with this plan. He will be placed in a splint. Follow- up precautions were given. Verbal discharge instructions were given to the patient. They verbalized understanding. They are stable for discharge. - Vital Signs Vital signs: Temp Pulse Resp BP Pulse Ox 98.1 F 94 20 140/91 H 100 08/24/19 02:26 08/24/19 02:26 08/24/19 02:26 08/24/19 02:26 08/24/19 02:26 Discharge - Discharge Clinical Impression: Carpal bone fracture Qualifiers: Encounter type: initial encounter Carpal bone: hamate Hamate bone location: unspecified portion of hamate Fracture type: closed Fracture alignment: displaced Laterality: right Qualified Code(s): S62.141A - Displaced fracture of body of hamate [unciform] bone, right wrist, initial encounter for closed fracture Condition: Stable Disposition: HOME, SELF-CARE Additional Instructions: You were seen today in the emergency department after punching a wall. You have multiple fractures in your wrist. You are being placed in a splint. Make sure he keep your wrist in the splint until you see orthopedics. Take ibuprofen 600 mg every 6 hours for swelling and pain. You can take Tylenol 650 mg every 6 hours also. You are being sent home with pain medication. Please use the sparingly, as you only have a few pills. These make sure you rest. You are also being placed in a sling to help with comfort. Prescriptions: Hydrocodone/Acetaminophen [[place] 5-325 mg Tablet] 1 tab PO Q6HP PRN #15 tablet PRN Reason: Referrals: GRADY HAGAN MD [ACTIVE PROVISIONAL STAFF] - Follow up in 1 week
--- NOTE | 2019-08-24 09:06 | RADIOLOGY REPORT (SQ) ---
EXAM DESCRIPTION: HAND RIGHT 3 VIEWS COMPLETED DATE/TIME: 08/24/2019 8:41 am REASON FOR STUDY: punched wall COMPARISON: 04/25/2007 EXAM PARAMETERS: NUMBER OF VIEWS: Three views. TECHNIQUE: AP, lateral and oblique radiographic images acquired of the right hand. LIMITATIONS: None. FINDINGS: MINERALIZATION: Normal. BONES: There is a fracture dislocation of the carpal bones. Difficult to determine although the bone s infected on this conventional radiograph. CT is recommended for further evaluation. JOINTS: No effusions. SOFT TISSUES: No soft tissue swelling. No foreign body. OTHER: No other significant finding. IMPRESSION: Complex fracture dislocation of the carpal and metacarpal bones. CT is recommended for further evaluation. COMMENT: This report was called to the ER at time of dictation. I spoke with the charge nurse. TECHNICAL DOCUMENTATION: JOB ID: [id number] [employer]- All Rights Reserved Reading location - IP/workstation name: [email or web address]
[2019-08-24] MEDS ORDERED: OXYCODONE HCL IR 5 MG TABLET PO ONE ×2 (09:26→10:55)
--- NOTE | 2019-08-24 10:41 | RADIOLOGY REPORT (SQ) ---
EXAM DESCRIPTION: CT RT UPPER EXTREMITY WITHOUT COMPLETED DATE/TIME: 08/24/2019 9:53 am REASON FOR STUDY: further eval fracture/dislocation COMPARISON: PA, oblique, lateral views of the right hand from 08/24/2019. TECHNIQUE: Sequential CT images of the right wrist were obtained in the axial plane without intraven ous contrast. Coronal and sagittal reformats are reconstructed from the axial images. All CT scanners at this facility use dose modulation, iterative reconstruction, and/or weight based d osing when appropriate to reduce radiation dose to as low as reasonably achievable (ALARA). [facility]: Dose Right [facility]: CareDose [facility]: Dose Right [facility]: Teradose 4D [facility]: Reachoo RADIATION DOSE: CT Rad equipment meets quality standard of care and radiation dose reduction techniq ues were employed. CTDIvol: 2.6 mGy. DLP: 37 mGy-cm. LIMITATIONS: None. FINDINGS: There is an acute, comminuted, displaced and intra-articular fracture of the hamate; the f racture spares the hook of the hamate. There is also an acute and intra-articular fracture of the pr oximal 3rd metacarpal and a probable impaction deformity of the anterior dorsal articular surface of the capitate (image 17 of series 3). There are osseous fragments within the adjacent carpometacarpal and intercarpal joints and there is surrounding soft tissue swelling. The carpal articulation with the distal radius and ulna is normal. IMPRESSION: 1. Acute, comminuted, displaced and intra-articular fracture of the hamate with displace d fracture fragments within the carpometacarpal and intercarpal joints. 2. Acute and intra-articular fracture of the proximal 3rd metacarpal. 3. Probable impaction deformity of the anterior dorsal articular surface of the capitate with the pérez mate (image 17 of series 3). TECHNICAL DOCUMENTATION: JOB ID: [id number] Quality ID # [id number]: Final reports with documentation of one or more dose reduction techniques (e.g., Au tomated exposure control, adjustment of the mA and/or kV according to patient size, use of iterative reconstruction technique) 2010 [employer] All Rights Reserved Reading location - IP/workstation name: [email or web address]
[2019-08-24 11:18] VITALS: BP 144/89
== END 2019-08-24 11:34 | disposition home or self-care (01) ==
LOC: ER 02:18
DX: S62.141A Displaced fracture of body of hamate [unciform] bone, right wrist, initial encounter for closed fracture (principal); S62.302A Unspecified fracture of third metacarpal bone, right hand, initial encounter for closed fracture; M79.641 Pain in right hand; M79.631 Pain in right forearm; W22.01XA Walked into wall, initial encounter; F17.200 Nicotine dependence, unspecified, uncomplicated; F12.10 Cannabis abuse, uncomplicated
CPT/HCPCS: 99284

== ENCOUNTER 2019-09-23 17:07 | Emergency (ER) | payer OTHER ==
[2019-09-23] MEDS ORDERED: NORMAL SALINE 1000 ML 1,000 ML IV ONE (17:31)
[2019-09-23] MEDS ORDERED: ONDANSETRON HCL INJ/PF 4 MG/2 ML SDV IV ONE (17:36)
--- NOTE | 2019-09-23 17:39 | ER Document Report ---
ED Medical Screen (RME) - General Chief Complaint: Bloody Stools Stated Complaint: BLOOD IN STOOL Time Seen by Provider: 09/23/19 17:30 TRAVEL OUTSIDE OF THE [place] IN LAST 30 DAYS: No - HPI Notes: 09/23/19 17:37 34 year old male to the ED with C/O Nausea, vomiting, diffuse abdominal pain, and bloody stools for the past week. States he has not been able to keep anything down. States in the past two days, he some some blood in his stool and thought maybe he had a hemorrhoid. However today, he went to the bathroom and saw gross blood without stool. He admits to feeling lightheaded. No family history IBD. There is family history of cancer. He smokes. I performed a brief medical screening exam on the patient and determined that the patient will need further management by mainside provider. I have placed initial orders to help expedite the patient's care today. - Related Data Allergies/Adverse Reactions: codeine [Codeine] Allergy (Verified 09/23/19 17:28) Past Medical History - Social History Chew tobacco use (# tins/day): No Frequency of alcohol use: None Drug Abuse: Marijuana Renal/ Medical History: Denies: Hx Peritoneal Dialysis - Immunizations Immunizations up to date: Yes Hx Diphtheria, Pertussis, Tetanus Vaccination: No Physical Exam - Vital signs Vitals: Temp Pulse Resp BP Pulse Ox 98.2 F 93 20 150/90 H 98 09/23/19 17:12 09/23/19 17:12 09/23/19 17:12 09/23/19 17:12 09/23/19 17:12 Course - Vital Signs Vital signs: Temp Pulse Resp BP Pulse Ox 98.2 F 93 20 150/90 H 98 09/23/19 17:25 09/23/19 17:25 09/23/19 17:25 09/23/19 17:25 09/23/19 17:25
[2019-09-23 18:10] LABS: ABSOLUTE BASOPHILS # (AUTO) 0.1 10^3/uL (0.0-0.2); ABSOLUTE EOSINOPHILS # (AUTO) 0.2 10^3/uL (0.0-0.6); ABSOLUTE MONOCYTES (AUTO) 0.5 10^3/uL (0.1-1.4); ABSOLUTE NEUT (AUTO) 3.7 10^3/uL (1.7-8.2); BASOPHILS % (AUTO) 0.9 % (0-2); EOSINOPHILS % (AUTO) 3.5 % (0-6); HEMATOCRIT 51.4 % (37.9-51.0); HEMOGLOBIN 17.9 g/dL (13.5-17.0); LYMPHOCYTES % (AUTO) 30.5 % (13-45); MEAN CORPUSCULAR HEMOGLOBIN 30.2 pg (27.0-33.4); MEAN CORPUSCULAR HGB CONC 34.8 g/dL (32.0-36.0); MEAN CORPUSCULAR VOLUME 87 fl (80-97); MONOCYTES % (AUTO) 7.6 % (3-13); PLATELET COUNT 323 10^3/uL (150-450); RED BLOOD COUNT 5.91 10^6/uL (4.35-5.55); RED CELL DISTRIBUTION WIDTH 13.6 % (11.5-14.0); SEGMENTED NEUTROPHILS % (AUTO) 57.5 % (42-78); TOTAL CELLS COUNTED % (AUTO) 100 %; WHITE BLOOD COUNT 6.5 10^3/uL (4.0-10.5)
[2019-09-23 18:27] LABS: ALBUMIN 5.2 g/dL (3.5-5.0); ALKALINE PHOSPHATASE 91 U/L (38-126); ANION GAP 13 (5-19); ASPARTATE AMINO TRANSFERASE 21 U/L (17-59); BILIRUBIN,DIRECT 0.1 mg/dL (0.0-0.4); BILIRUBIN,TOTAL 0.9 mg/dL (0.2-1.3); BLOOD UREA NITROGEN 10 mg/dL (7-20); CARBON DIOXIDE 30 mmol/L (22-30); CHLORIDE 96 mmol/L (98-107); GLUCOSE 91 mg/dL (75-110); POTASSIUM 4.2 mmol/L (3.6-5.0); TOTAL PROTEIN 8.4 g/dL (6.3-8.2)
--- NOTE | 2019-09-23 20:35 | RADIOLOGY REPORT (SQ) ---
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 TECHNIQUE: CT scan of the abdomen and pelvis was performed with IV contrast. This exam was performed according to our departmental dose-optimization program, which includes automated exposure control, adjustment of the mA and/or kV according to patient size and/or use of iterative reconstruction technique. FINDINGS: The lung bases are clear. No pleural or pericardial effusions. The liver, spleen, pancreas, gallbladder, adrenal glands, and kidneys are unremarkable. There is a tiny nonobstructing stone in the left kidney. No hydronephrosis. The pelvic organs are also unremarkable. Mild wall thickening of the sigmoid colon. The small bowel and appendix are normal. No intraperitoneal free fluid or free air is seen. The aorta is normal caliber. The osseous structures are intact. IMPRESSION: Mild wall thickening of the sigmoid colon which may represent mild colitis.
[2019-09-23] MEDS ORDERED: METHYLPREDNISOLONE INJ 125 MG/2 ML SDV IV ONE (21:13)
--- NOTE | 2019-09-23 21:16 | ER Document Report ---
ED General - General Chief Complaint: Bloody Stools Stated Complaint: BLOOD IN STOOL Time Seen by Provider: 09/23/19 17:30 Mode of Arrival: Ambulatory Information source: Patient Notes: YOGI note: 34 year old male to the ED with C/O Nausea, vomiting, diffuse abdominal pain, and bloody stools for the past week. States he has not been able to keep anything down. States in the past two days, he some some blood in his stool and thought maybe he had a hemorrhoid. However today, he went to the bathroom and saw gross blood without stool. He admits to feeling lightheaded. No family history IBD. There is family history of cancer. He smokes. TRAVEL OUTSIDE OF THE [place] IN LAST 30 DAYS: No - Related Data Allergies/Adverse Reactions: codeine [Codeine] Allergy (Verified 09/23/19 17:28) Past Medical History - General Information source: Patient - Social History Smoking Status: Current Every Day Smoker Chew tobacco use (# tins/day): No Frequency of alcohol use: None Drug Abuse: Marijuana Family History: Reviewed & Not Pertinent, Other - none Patient has suicidal ideation: No Patient has homicidal ideation: No - Medical History Medical History: Negative Renal/ Medical History: Denies: Hx Peritoneal Dialysis Surgical Hx: Negative - Immunizations Immunizations up to date: Yes Hx Diphtheria, Pertussis, Tetanus Vaccination: No Review of Systems - Review of Systems Constitutional: No symptoms reported EENT: No symptoms reported Cardiovascular: No symptoms reported Respiratory: No symptoms reported Gastrointestinal: See HPI Genitourinary: No symptoms reported Male Genitourinary: No symptoms reported Musculoskeletal: No symptoms reported Skin: No symptoms reported Hematologic/Lymphatic: No symptoms reported Neurological/Psychological: No symptoms reported Physical Exam - Vital signs Vitals: Temp Pulse Resp BP Pulse Ox 98.2 F 93 20 150/90 H 98 09/23/19 17:12 09/23/19 17:12 09/23/19 17:12 09/23/19 17:12 09/23/19 17:12 - Notes Notes: PHYSICAL EXAMINATION: GENERAL: Well-appearing, well-nourished and in no acute distress. HEAD: Atraumatic, normocephalic. EYES: Pupils equal round and reactive to light, extraocular movements intact, sclera anicteric, conjunctiva are normal. ENT: Nares patent, oropharynx clear without exudates. Moist mucous membranes. NECK: Normal range of motion, supple without lymphadenopathy LUNGS: Breath sounds clear to auscultation bilaterally and equal. No wheezes rales or rhonchi. HEART: Regular rate and rhythm without murmurs ABDOMEN: Soft, mild generalized abdominal tenderness with palpation. No masses appreciated. Musculoskeletal: Normal range of motion, no pitting or edema. No cyanosis. NEUROLOGICAL: Cranial nerves grossly intact. Normal speech, normal gait. Normal sensory, motor exams PSYCH: Normal mood, normal affect. SKIN: Warm, Dry, normal turgor, no rashes or lesions noted. Course - Re-evaluation Re-evalutation: Laboratory 09/23/19 09/23/19 09/23/19 17:53 17:53 17:53 WBC 6.5 RBC 5.91 H Hgb 17.9 H Hct 51.4 H MCV 87 MCH 30.2 MCHC 34.8 RDW 13.6 Plt Count 323 Lymph % (Auto) 30.5 Chambers % (Auto) 7.6 Eos % (Auto) 3.5 Baso % (Auto) 0.9 Absolute Neuts (auto) 3.7 Absolute Lymphs (auto) 2.0 Absolute Monos (auto) 0.5 Absolute Eos (auto) 0.2 Absolute Basos (auto) 0.1 Seg Neutrophils % 57.5 Sodium 139.3 Potassium 4.2 Chloride 96 L Carbon Dioxide 30 Anion Gap 13 BUN 10 Creatinine 0.92 Est GFR ( Amer) > 60 Est GFR (MDRD) Non-Af > 60 Glucose 91 Calcium 10.0 Total Bilirubin 0.9 Direct Bilirubin 0.1 Neonat Total Bilirubin Not Reportable Neonat Direct Bilirubin Not Reportable Neonat Indirect Bili Not Reportable AST 21 ALT 27 Alkaline Phosphatase 91 Total Protein 8.4 H Albumin 5.2 H Lipase 776.1 H Abdomen/Pelvis CT 09/23/19 17:31 IMPRESSION: Mild wall thickening of the sigmoid colon which may represent mild colitis. Patient appears well, nontoxic. No leukocytosis noted. Patient does have mildly elevated lipase. On CT patient does have findings suggestive of mild colitis. Patient reports he does feel improved after administration of medications here in the emergency department. He will be discharged home as there is no evidence of any life-threatening etiology. He was given strict ED return precautions. 12/15/19 21:19 Patient had a recent boxer fracture to his right hand, he has a splint in place from this. The splint has been damaged as he states it got wet, new splint will be applied. - Vital Signs Vital signs: Temp Pulse Resp BP Pulse Ox 97.8 F 67 18 121/84 99 09/23/19 22:25 09/23/19 22:25 09/23/19 22:25 09/23/19 22:25 09/23/19 22:25 - Laboratory Result Diagrams: 09/23/19 17:53 09/23/19 17:53 Laboratory results interpreted by me: 09/23/19 09/23/19 09/23/19 17:53 17:53 17:53 RBC 5.91 H Hgb 17.9 H Hct 51.4 H Chloride 96 L Total Protein 8.4 H Albumin 5.2 H Lipase 776.1 H Procedures - Immobilization Right hand Pre-Proc Neuro Vasc Exam: Normal Immobilizer type: Ulnar Performed by: PCT Post-Proc Neuro Vasc Exam: Normal Discharge - Discharge Clinical Impression: Colitis Condition: Stable Disposition: HOME, SELF-CARE Additional Instructions: Colitis, Nonspecific Colitis is an inflammatory disease of the large intestine which affects the lining of the bowel. The cause is uncertain, though it is often caused by an infection. In some cases, the symptoms resolve and can return again in the future. Colitis is characterized by abdominal pain, often nausea and vomiting, and either diarrhea or difficulty with bowel movements. Sometimes blood will be present in the bowel movements. Fever is often present as well. Milder cases of colitis can be managed as an outpatient with medications for nausea and vomiting and pain, oral fluid therapy, and perhaps antibiotics, if a bacterial origin is suspected. Antidiarrhea medicine should usually be avoided in colitis. If you have increasing abdominal pain, repeated vomiting, fever, rectal bleeding, or worsening diarrhea, you should return for re-evaluation. Please take medication as prescribed. Do not take any antidiarrheal medication. Drink plenty of fluids. Eat a bland diet. Follow-up with primary care if symptoms not improving, return to the ED if worsening. Prescriptions: Dicyclomine HCl [Bentyl 20 mg Tablet] 20 mg PO QID #40 tablet Promethazine HCl [Phenergan 25 mg Tablet] 1 - 2 tab PO Q6H PRN #15 tablet PRN Reason: Forms: Return to Work
[2019-09-23] MEDS ORDERED: DICYCLOMINE HCL INJ 20 MG/2 ML AMPULE IM ONE (21:17)
[2019-09-23] MEDS ORDERED: ONDANSETRON ODT 4 MG TAB (6 TAB/ER DISP) PO PRN (21:46)
[2019-09-23 22:14] VITALS: BP 121/84
== END 2019-09-23 22:25 | disposition home or self-care (01) ==
LOC: ER 17:07
DX: K52.9 Noninfective gastroenteritis and colitis, unspecified (principal); R11.2 Nausea with vomiting, unspecified; R10.9 Unspecified abdominal pain; R19.5 Other fecal abnormalities; R42 Dizziness and giddiness; F17.200 Nicotine dependence, unspecified, uncomplicated
CPT/HCPCS: 36415; 83690; 85025; 80053; 74177; J0500; J2930; J2405; J7030; 96361; 96372; 96374; 96375; 99284

== ENCOUNTER 2019-09-30 22:55 | Emergency (ER) | payer OTHER ==
[2019-10-01] LABS: ABSOLUTE EOSINOPHILS # (AUTO) 0.2 10^3/uL (0.0-0.6); ABSOLUTE LYMPHOCYTES (AUTO) 2.8 10^3/uL (0.5-4.7); ABSOLUTE MONOCYTES (AUTO) 0.5 10^3/uL (0.1-1.4); MEAN CORPUSCULAR HEMOGLOBIN 29.8 pg (27.0-33.4); TOTAL CELLS COUNTED % (AUTO) 100 %
[2019-10-01 00:16] LABS: ALBUMIN 4.4 g/dL (3.5-5.0); ALKALINE PHOSPHATASE 76 U/L (38-126); ANION GAP 12 (5-19); ASPARTATE AMINO TRANSFERASE 18 U/L (17-59); BILIRUBIN,DIRECT 0.2 mg/dL (0.0-0.4); BILIRUBIN,TOTAL 0.4 mg/dL (0.2-1.3); BLOOD UREA NITROGEN 9 mg/dL (7-20); CALCIUM 9.5 mg/dL (8.4-10.2); CARBON DIOXIDE 27 mmol/L (22-30); CHLORIDE 99 mmol/L (98-107); GLUCOSE 99 mg/dL (75-110); POTASSIUM 3.7 mmol/L (3.6-5.0); TOTAL PROTEIN 7.2 g/dL (6.3-8.2)
[2019-10-01 00:19] LABS: ABSOLUTE NEUT (AUTO) 3.3 10^3/uL (1.7-8.2); BASOPHILS % (AUTO) 0.7 % (0-2); EOSINOPHILS % (AUTO) 3.4 % (0-6); LYMPHOCYTES % (AUTO) 40.9 % (13-45); MEAN CORPUSCULAR HGB CONC 34.1 g/dL (32.0-36.0); MEAN CORPUSCULAR VOLUME 88 fl (80-97); MONOCYTES % (AUTO) 7.6 % (3-13); PLATELET COUNT 305 10^3/uL (150-450); RED BLOOD COUNT 5.37 10^6/uL (4.35-5.55); RED CELL DISTRIBUTION WIDTH 13.6 % (11.5-14.0); SEGMENTED NEUTROPHILS % (AUTO) 47.4 % (42-78); WHITE BLOOD COUNT 6.9 10^3/uL (4.0-10.5)
[2019-10-01 00:42] LABS: APPEARANCE,URINE SLIGHTLY-CLOUDY; BILIRUBIN,URINE NEGATIVE (NEGATIVE); COLOR,URINE YELLOW; GLUCOSE, URINE NEGATIVE (NEGATIVE); KETONES,URINE TRACE mg/dL (NEGATIVE); LEUKOCYTE ESTERASE,URINE NEGATIVE (NEGATIVE); NITRITE,URINE NEGATIVE (NEGATIVE); PROTEIN,URINE 30 mg/dL (NEGATIVE); URINE SPECIFIC GRAVITY 1.028
--- NOTE | 2019-10-01 01:53 | ER Document Report ---
Entered by CEE RAY SCRIBE 10/01/19 0129 Acting as scribe for:CARL JOHNSON IV, MD ED GI/ - General Chief Complaint: Abdominal Cramping Stated Complaint: BLOODY STOOL,PAINFUL STOOL Mode of Arrival: Ambulatory Information source: Patient Notes: This 34-year-old male patient presents to the emergency department today with complaints of lower abdominal pain. Patient states that he was seen here a week ago for blood in his stool. Patient states over the past week he has had 2 ep isodes of bloody bowel movements, stating that the blood was mixed in with feces. Patient states "the bleeding has now gotten much better but the lower abdominal pain still present". TRAVEL OUTSIDE OF THE [place] IN LAST 30 DAYS: No - Related Data Allergies/Adverse Reactions: codeine [Codeine] Allergy (Verified 09/23/19 17:28) Home Medications: Phenergan Past Medical History - General Information source: Patient - Social History Smoking Status: Unknown if Ever Smoked Cigarette use (# per day): No Frequency of alcohol use: None Drug Abuse: None Lives with: Family Family History: Reviewed & Not Pertinent, Other - none Patient has suicidal ideation: No Patient has homicidal ideation: No - Immunizations Immunizations up to date: Yes Hx Diphtheria, Pertussis, Tetanus Vaccination: No Review of Systems - Review of Systems Constitutional: No symptoms reported EENT: No symptoms reported Cardiovascular: No symptoms reported Respiratory: No symptoms reported Gastrointestinal: See HPI, Abdominal pain, Diarrhea, Rectal bleeding. denies: Vomiting Genitourinary: No symptoms reported Male Genitourinary: No symptoms reported Musculoskeletal: No symptoms reported Skin: No symptoms reported Hematologic/Lymphatic: No symptoms reported Neurological/Psychological: No symptoms reported -: Yes All other systems reviewed and negative Physical Exam - Vital signs Vitals: Temp Pulse Resp BP Pulse Ox 97.9 F 79 16 138/85 H 99 09/30/19 22:58 09/30/19 22:58 09/30/19 22:58 09/30/19 22:58 09/30/19 22:58 - Notes Notes: Physical Exam: General: Alert, appears well. HEENT: Normocephalic. Atraumatic. PERRL. Extraocular movements intact. Oropharynx clear. Neck: Supple. Non-tender. Respiratory: No respiratory distress. Clear and equal breath sounds bilaterally. Cardiovascular: Regular rate and rhythm. Abdominal: Normal Inspection. Non-tender. No distension. Normal Bowel Sounds. Back: No gross abnormalities. Extremities: Moves all four extremities. Upper extremities: Normal inspection. Normal ROM. Lower extremities: Normal inspection. No edema. Normal ROM. Neurological: Normal cognition. AAOx4. Normal speech. Psychological: Normal affect. Normal Mood. Skin: Warm. Dry. Normal color. Course - Vital Signs Vital signs: Temp Pulse Resp BP Pulse Ox 97.9 F 79 16 138/85 H 99 09/30/19 23:34 09/30/19 22:58 09/30/19 23:34 09/30/19 22:58 09/30/19 23:34 - Laboratory Result Diagrams: 09/30/19 23:40 09/30/19 23:40 Laboratory results interpreted by me: 09/30/19 10/01/19 23:40 00:18 Lipase 817.1 H Urine Protein 30 H Urine Ketones TRACE H Urine Urobilinogen 2.0 H Discharge - Discharge Clinical Impression: Blood in stool Condition: Good Disposition: HOME, SELF-CARE Additional Instructions: Return to the Emergency Department without delay if any worse. HOME CARE INSTRUCTIONS & INFORMATION: Thank you for choosing us for your medical needs. We hope you're satisfied with the care you received. After you leave, you must properly care for your problem and, at the same time, observe its progress. Any condition can change. Some illnesses can change rapidly over hours or days. If your condition worsens, return to the Emergency Department or see your physician promptly. ABOUT YOUR X-RAYS AND EKG'S: If you had an EKG or X-rays taken, they have been read by the Emergency Physician. The X-rays and EKG's will also be read by a Radiologist or Field Manager within 24 hours. If discrepancies are noted, you will be notified by telephone. Please be certain the ED has a correct telephone number & address where you can be reached. Also, realize that some fractures or abnormalities do not show up on initial X-rays. If your symptoms continue, see your physician. ABOUT YOUR LABORATORY TEST: If you had laboratory tests, the results have been reviewed by the Emergency Physician. Some test results (for example cultures) may not be available for several days. You will be contacted if any test result shows you need additional treatment. Please be certain the ED has a correct telephone number and address where you can be reached. ABOUT YOUR MEDICATIONS: You will receive instructions on how to take your medicine on the prescription label you receive. Additional information may be provided by the Pharmacy. If you have questions afterwards, call the ED for clarification or further instructions. Some prescribed medications may cause drowsiness. Do not perform tasks such as driving a car or operating machinery without consulting your Pharmacist. If you feel you need a refill of pain medication, your condition will need re-evaluation. Please do not call for a refill of any medication. ABOUT YOUR SIGNATURE: Signature of this document acknowledges to followin. Understanding that you received emergency treatment and that you may be released before al medical problems are known or treated. Please be certain the ED has a correct phone number & address where you can be reached. 2. Acknowledgement that you will arrange for follow-up care as recommended. 3. Authorization for the Emergency Physician to provide information to your follow-up Physician in order to maximize your care. AT ANY TIME, IF YOUR SYMPTOMS CHANGE SIGNIFICANTLY OR WORSEN OR YOU DEVELOP NEW SYMPTOMS, RETURN TO THE EMERGENCY DEPARTMENT IMMEDIATELY FOR RE-EVALUATION. OUR GOAL IS TO PROVIDE EXCELLENT MEDICAL CARE! WE HOPE THAT WE HAVE MET YOUR EXPECTATIONS DURING YOUR EMERGENCY DEPARTMENT VISIT AND THAT YOU FEEL YOU HAVE RECEIVED EXCELLENT CARE! Prescriptions: Diphenoxylate HCl/Atrop Sulf [Lomotil 2.5 mg Tablet] 2 tab PO Q6HP PRN #30 tablet PRN Reason: Diarrhea Hydrocodone/Acetaminophen [Vicodin 5-300 mg Tablet] 1 each PO Q6HP PRN #15 tablet PRN Reason: Severe Pain I personally performed the services described in the documentation, reviewed and edited the documentation which was dictated to the scribe in my presence, and it accurately records my words and actions.
[2019-10-01 02:19] VITALS: BP 131/69
[2019-10-01 07:34] LABS: CRYPTOSPORIDIUM PARVUM AG NEGATIVE (NEGATIVE); GIARDIA LAMBLIA AG NEGATIVE (NEGATIVE)
== END 2019-10-01 02:18 | disposition home or self-care (01) ==
LOC: ER 22:55
DX: K62.5 Hemorrhage of anus and rectum (principal); R10.30 Lower abdominal pain, unspecified; R19.7 Diarrhea, unspecified
CPT/HCPCS: 36415; 80053; 81001; 83690; 85025; 86403; 87045; 87177; 87205; 87329; 89055; 99283

== ENCOUNTER 2020-02-11 22:16 | Emergency (ER) | payer OTHER ==
--- NOTE | 2020-02-12 01:34 | ER Document Report ---
ED General - General Chief Complaint: Abdominal Pain Stated Complaint: ABDOMINAL SWELLING Time Seen by Provider: 02/12/20 01:32 Mode of Arrival: Ambulatory Information source: Patient TRAVEL OUTSIDE OF THE [place] IN LAST 30 DAYS: No - HPI Onset: Last week Onset/Duration: Gradual Quality of pain: Pressure, Sharp Severity: Severe Pain Level: 5 Associated symptoms: Other - decreased stool output Exacerbated by: Denies Relieved by: Denies Similar symptoms previously: No Recently seen / treated by doctor: No Notes: 35 year old male with a history of Endocarditis and an episode of Colitis in Sep 2019 here in the ER for 1 week of abdominal pain (worse in left lower quadrant and epigastric area) and several days of abdominal distention. The patient denies fevers, chills, sweats, nausea, vomiting, diarrhea but he has had some decreased stool output. The patient says when he has had a bowel movement it has been looser than normal. The patient denies a history of kidney stones of gallstones. The patient is unsure of anything that makes his abdominal pain better or worse. The patient denies recent travel, known sick contacts, or ingestion of uncooked foods. - Related Data Allergies/Adverse Reactions: codeine [Codeine] Allergy (Verified 02/11/20 22:38) Past Medical History - General Information source: Patient - Social History Smoking Status: Current Every Day Smoker Frequency of alcohol use: Occasional Drug Abuse: None Family History: Reviewed & Not Pertinent, Other - none Patient has suicidal ideation: No Patient has homicidal ideation: No Renal/ Medical History: Denies: Hx Peritoneal Dialysis - Immunizations Immunizations up to date: Yes Hx Diphtheria, Pertussis, Tetanus Vaccination: No Review of Systems - Review of Systems Constitutional: No symptoms reported EENT: No symptoms reported Cardiovascular: No symptoms reported Respiratory: No symptoms reported Gastrointestinal: Abdomen distended, Abdominal pain Genitourinary: No symptoms reported Male Genitourinary: No symptoms reported Musculoskeletal: No symptoms reported Skin: No symptoms reported Hematologic/Lymphatic: No symptoms reported Neurological/Psychological: No symptoms reported -: Yes All other systems reviewed and negative Physical Exam - Vital signs Vitals: Temp Pulse Resp BP Pulse Ox 98.0 F 64 16 135/89 H 99 02/11/20 22:37 02/11/20 22:37 02/11/20 22:37 02/11/20 22:37 02/11/20 22:37 - Notes Notes: GENERAL: Well-appearing, well-nourished and in no acute distress. HEAD: Atraumatic, normocephalic. EYES: Pupils equal round and reactive to light, extraocular movements intact, sclera anicteric, conjunctiva are normal. ENT: External ears normal, nares patent, oropharynx clear without exudates. Moist mucous membranes. NECK: Normal range of motion, supple without lymphadenopathy or JVD. LUNGS: Breath sounds clear to auscultation bilaterally and equal. No wheezes rales or rhonchi. HEART: Regular rate and rhythm without murmurs, rubs or gallops. ABDOMEN: Mildly distended, mild tenderness in epigastric area and left lower quadrant. Normoactive bowel sounds. Mild guarding but no rebound. No masses appreciated. EXTREMITIES: Normal range of motion, no pitting or edema. No clubbing or cyanosis. NEUROLOGICAL: Cranial nerves II through XII grossly intact. Normal speech, normal gait. PSYCH: Normal mood, normal affect. SKIN: Warm, Dry, normal turgor, no rashes or lesions noted. Course - Re-evaluation Re-evalutation: 02/12/20 01:43 The patient is here for 1 week of abdominal pain which is worst in his epigastric area and LLQ. The patient had Colitis and blood in his stool in Sep 2019. Plan to obtain labs, obtain CT abd/pelvis and treat patient with Fluids and Toradol. Patient signed out to JAMIE Sanchez. [place] per CT. If CT shows colitis again patient should follow up with a GI Doctor for inflammatory bowel disease work up. Could of course treat patient with antibiotics, but this would be 2 episodes of colitis in a 6 month time period. - Vital Signs Vital signs: Temp Pulse Resp BP Pulse Ox 98.0 F 64 16 135/89 H 99 02/11/20 22:39 02/11/20 22:37 02/11/20 22:37 02/11/20 22:37 02/11/20 22:37 - Laboratory Result Diagrams: 02/12/20 01:29 02/12/20 01:29 Laboratory results interpreted by me: 02/12/20 01:29 RBC 5.61 H RDW 14.1 H Discharge - Discharge Clinical Impression: Abdominal pain Qualifiers: Abdominal location: generalized Qualified Code(s): R10.84 - Generalized abdominal pain Condition: Stable Disposition: OTHER
[2020-02-12] MEDS ORDERED: KETOROLAC TROMETHAMINE INJ/PF 30 MG/1 ML SDV IV ONE (01:35)
[2020-02-12] MEDS ORDERED: NORMAL SALINE 1000 ML 1,000 ML IV ONE (01:35)
[2020-02-12 01:51] LABS: ABSOLUTE BASOPHILS # (AUTO) 0.1 10^3/uL (0.0-0.2); ABSOLUTE EOSINOPHILS # (AUTO) 0.4 10^3/uL (0.0-0.6); ABSOLUTE LYMPHOCYTES (AUTO) 2.8 10^3/uL (0.5-4.7); ABSOLUTE MONOCYTES (AUTO) 0.5 10^3/uL (0.1-1.4); ABSOLUTE NEUT (AUTO) 3.6 10^3/uL (1.7-8.2); BASOPHILS % (AUTO) 0.9 % (0-2); EOSINOPHILS % (AUTO) 5.2 % (0-6); HEMATOCRIT 48.5 % (37.9-51.0); HEMOGLOBIN 16.9 g/dL (13.5-17.0); LYMPHOCYTES % (AUTO) 38.4 % (13-45); MEAN CORPUSCULAR HEMOGLOBIN 30.2 pg (27.0-33.4); MEAN CORPUSCULAR HGB CONC 34.9 g/dL (32.0-36.0); MEAN CORPUSCULAR VOLUME 87 fl (80-97); MONOCYTES % (AUTO) 6.3 % (3-13); PLATELET COUNT 316 10^3/uL (150-450); RED BLOOD COUNT 5.61 10^6/uL (4.35-5.55); RED CELL DISTRIBUTION WIDTH 14.1 % (11.5-14.0); SEGMENTED NEUTROPHILS % (AUTO) 49.2 % (42-78); TOTAL CELLS COUNTED % (AUTO) 100 %; WHITE BLOOD COUNT 7.4 10^3/uL (4.0-10.5)
[2020-02-12 02:10] LABS: ALBUMIN 5.1 g/dL (3.5-5.0); ANION GAP 10 (5-19); ASPARTATE AMINO TRANSFERASE 20 U/L (17-59); BILIRUBIN,TOTAL 0.5 mg/dL (0.2-1.3); BLOOD UREA NITROGEN 7 mg/dL (7-20); CALCIUM 9.9 mg/dL (8.4-10.2); CARBON DIOXIDE 28 mmol/L (22-30); CHLORIDE 103 mmol/L (98-107); GLUCOSE 111 mg/dL (75-110); NEONATAL BILIRUBIN RESULT 0.5 mg/dL (0.1-1.1); POTASSIUM 4.2 mmol/L (3.6-5.0); TOTAL PROTEIN 8.2 g/dL (6.3-8.2)
[2020-02-12 02:40] LABS: APPEARANCE,URINE CLEAR; BILIRUBIN,URINE NEGATIVE (NEGATIVE); COLOR,URINE YELLOW; GLUCOSE, URINE NEGATIVE (NEGATIVE); KETONES,URINE NEGATIVE (NEGATIVE); LEUKOCYTE ESTERASE,URINE NEGATIVE (NEGATIVE); NITRITE,URINE NEGATIVE (NEGATIVE); PROTEIN,URINE NEGATIVE (NEGATIVE); URINE SPECIFIC GRAVITY 1.013; UROBILINOGEN,URINE NEGATIVE mg/dL (<2.0)
[2020-02-12 02:49] LABS: ALKALINE PHOSPHATASE 94 U/L (38-126)
[2020-02-12 02:59] LABS: URINE AMPHETAMINES SCREEN NEGATIVE; URINE BARBITURATES SCREEN NEGATIVE; URINE BENZODIAZEPINES SCREEN NEGATIVE; URINE COCAINE SCREEN NEGATIVE; URINE METHADONE SCREEN NEGATIVE; URINE PHENCYCLIDINE SCREEN NEGATIVE
[2020-02-12 03:00] LABS: URINE MARIJUANA (THC) SCREEN UNCONFIRMED POSITIVE
--- NOTE | 2020-02-12 04:11 | RADIOLOGY REPORT (SQ) ---
EXAM DESCRIPTION: CT ABDOMEN PELVIS WITH IV CONTRAST COMPLETED DATE/TME: 02/12/2020 01:32 CLINICAL HISTORY: 35 years Male, eval for abddominal pain. rule out diverticulitis Comparison: 09/23/19 Technique: IV contrast. Coronal and sagittal reformat. This exam was performed according to our departmental dose-optimization program, which includes automated exposure control, adjustment of the mA and/or kV according to patient size and/or use of iterative reconstruction technique. [facility]: Dose Right [facility]: CareDose [facility]: Dose Right [facility]: Teradose 4D [facility]: Acopio LIMITATIONS: None Findings: Stool retention. Moderate L4-L5 disc bulge/osteophyte complex with mild to moderate spinal and foraminal canal stenoses. Transitional vertebral bodies at the thoracolumbar and lumbosacral junctions. No ascites. No pneumoperitoneum. Normal appendix. No gross evidence of gallbladder inflammation, hepatobiliary obstruction, or portal vein defect. No bowel obstruction. No hydronephrosis or hydroureter. No renal/ureteral stone. No evidence of abdominal aortic aneurysm. Inferior thorax, liver, gallbladder, pancreas, spleen, adrenals, renal system, gastrointestinal tract, pelvic organs, lymphatics, vasculature, and musculoskeleton appear otherwise unremarkable. IMPRESSION: No acute findings.
[2020-02-12] MEDS ORDERED: HYDROCODONE/ACETAMINOPHEN 5-325 MG (6 TAB/ER DISP) PO PRN (04:29)
[2020-02-12 05:11] VITALS: BP 139/93
== END 2020-02-12 05:15 | disposition other institution (70) ==
LOC: ER 22:16
DX: R10.84 Generalized abdominal pain (principal); F17.200 Nicotine dependence, unspecified, uncomplicated; Z88.6 Allergy status to analgesic agent
CPT/HCPCS: 99284; 96361; 96374; 36415; 83690; 85025; 80053; 81001; 80307; 74177; J1885; J7030

== ENCOUNTER 2020-08-19 15:40 | Emergency (ER) | payer OTHER ==
[2020-08-19 15:53] VITALS: BP 141/91
== END 2020-08-19 18:47 | disposition left against medical advice (07) ==
LOC: ER 15:40
DX: Z53.21 Procedure and treatment not carried out due to patient leaving prior to being seen by health care provider (principal)

== ENCOUNTER 2020-08-24 19:27 | Emergency (ER) | payer OTHER ==
[2020-08-24] MEDS ORDERED: ONDANSETRON HCL INJ/PF 4 MG/2 ML SDV IV ONE ×2 (20:12→23:30)
[2020-08-24] MEDS ORDERED: RINGERS SOLUTION,LACTATED 1,000 ML IV ONE (20:12)
--- NOTE | 2020-08-24 20:12 | ER Document Report ---
ED Medical Screen (RME) - General Chief Complaint: Nausea/Vomiting Stated Complaint: NAUSEA,VOMITING,BODY ACHES Time Seen by Provider: 08/24/20 20:10 Mode of Arrival: Ambulatory Information source: Patient Notes: HPI; 35-year-old male presents to the emergency room complaining of nausea, vomiting, fatigue, and diarrhea for the past 4 days. Was notified 4 days ago that he had a positive Covid exposure. States unable to tolerate anything p.o. Has not been taking anything for his symptoms. No previous Covid testing. PE: Alert and oriented x3. Lungs: Clear to auscultation without rales, rhonchi, wheezes. Heart: Tachycardic without murmurs, rubs, gallops. I have greeted and performed a rapid initial assessment of this patient. A comprehensive ED assessment and evaluation of the patient, analysis of test results and completion of the medical decision making process will be conducted by additional ED providers. I have specifically instructed the patient or family members with the patient to immediately return to any nursing staff should anything change in the patient's condition or with their chief complaint. TRAVEL OUTSIDE OF THE [place] IN LAST 30 DAYS: No - Related Data Allergies/Adverse Reactions: codeine [Codeine] Allergy (Verified 02/11/20 22:38) Past Medical History Renal/ Medical History: Denies: Hx Peritoneal Dialysis - Immunizations Immunizations up to date: Yes Hx Diphtheria, Pertussis, Tetanus Vaccination: No Physical Exam - Vital signs Vitals: Temp Pulse Resp BP Pulse Ox 98.1 F 109 H 16 118/80 96 08/24/20 19:56 08/24/20 19:56 08/24/20 19:56 08/24/20 19:56 08/24/20 19:56 Course - Vital Signs Vital signs: Temp Pulse Resp BP Pulse Ox 98.1 F 109 H 16 118/80 96 08/24/20 19:56 08/24/20 19:56 08/24/20 19:56 08/24/20 19:56 08/24/20 19:56
[2020-08-24] MEDS ORDERED: KETOROLAC TROMETHAMINE INJ/PF 30 MG/1 ML SDV IV ONE (23:01)
--- NOTE | 2020-08-24 23:02 | ER Document Report ---
ED General - General Chief Complaint: Nausea/Vomiting Stated Complaint: NAUSEA,VOMITING,BODY ACHES Time Seen by Provider: 08/24/20 20:10 Mode of Arrival: Ambulatory Notes: Patient is a 35-year-old male who comes emergency department chief complaint of 4 days of sick symptoms including chills, body aches, nausea, vomiting, diarrhea. He states over the past couple of days he has vomited 1-2 times daily and had about 4-5 episodes of diarrhea (nonbloody) per day. He has a positive Covid exposure at work, has not been tested for Covid yet. He denies fever, cough, shortness of breath, sore throat, congestion, flank pain, chest pain. He denies recent travel, suspicious foods, recent antibiotics. He takes no daily medications. He denies any past medical history. TRAVEL OUTSIDE OF THE [place] IN LAST 30 DAYS: No - Related Data Allergies/Adverse Reactions: codeine [Codeine] Allergy (Verified 02/11/20 22:38) Past Medical History - General Information source: Patient - Social History Smoking Status: Never Smoker Drug Abuse: None Lives with: Family Family History: Reviewed & Not Pertinent, Other - none Renal/ Medical History: Denies: Hx Peritoneal Dialysis - Immunizations Immunizations up to date: Yes Hx Diphtheria, Pertussis, Tetanus Vaccination: No Review of Systems - Review of Systems Constitutional: See HPI EENT: No symptoms reported Cardiovascular: No symptoms reported Respiratory: No symptoms reported Gastrointestinal: See HPI Genitourinary: No symptoms reported Male Genitourinary: No symptoms reported Musculoskeletal: No symptoms reported Skin: No symptoms reported Hematologic/Lymphatic: No symptoms reported Neurological/Psychological: No symptoms reported Physical Exam - Vital signs Vitals: Temp 98.6 F 08/24/20 19:27 - Notes Notes: GENERAL: Alert, interacts well. No acute distress. HEAD: Normocephalic, atraumatic. EYES: Pupils equal, round, and reactive to light. Extraocular movements intact. ENT: Oral mucosa dry, tongue midline. Oropharynx unremarkable. Airway patent. Nares patent, sinuses non-tender, ear canals unremarkable, TM's intact. NECK: Full range of motion. Supple. Trachea midline. No lymphadenopathy. LUNGS: Clear to auscultation bilaterally, no wheezes, rales, or rhonchi. No respiratory distress. Non-tender chest wall. HEART: Mild tachycardia, normal rhythm, no murmur ABDOMEN: No tenderness noted over the abdomen, no distention, no guarding, bowel sounds unremarkable EXTREMITIES: Moves all 4 extremities spontaneously. No edema, normal radial and dorsalis pedis pulses bilaterally. No cyanosis. BACK: no cervical, thoracic, lumbar midline tenderness. No saddle anesthesia, normal distal neurovascular exam. Moves all extremities in full range of motion. NEUROLOGICAL: Alert and oriented x3. Normal speech. Cranial nerves II through XII grossly intact. Strength 5/5 in all extremities. PSYCH: Normal affect, normal mood. SKIN: Erythematous patchy rash with a few dried areas mainly over the flexural surface of the forearm and slightly over the neck and side of the face. No pustules, induration, fluctuance, significant erythema suggesting cellulitis, no evidence of necrotizing fasciitis. Course - Re-evaluation Re-evalutation: Patient well-appearing, soft benign abdomen, unremarkable oropharyngeal exam, lung exam, skin exam. Patient mildly tachycardic initially but this resolved with IV fluids. On reevaluation patient is well-appearing watching a movie on his tablet. CBC, chemistry unremarkable, lipase unremarkable. Patient did not have any diarrhea while he was here, tolerated p.o. without any difficulty. COVID-19 test is already pending based on his exposure and symptoms. Discussed with patient. Patient is requesting treatment for the rash that he developed, this was noticed on exam, he states this started before he got sick after he spent time out in the [place]. Appears to be contact dermatitis. I do not feel patient will tolerate the prednisone well at the moment, rash is not terribly severe, after discussing options decision was made provide him with a prescription for the prednisone after his gastroenteritis symptoms resolved, he states he will definitely do this. Patient will be discharged with symptom management, discussed expectations, follow-up, return precautions. Patient states appreciation and agreement. Stable and well-appearing at time of discharge. - Vital Signs Vital signs: Temp Pulse Resp BP Pulse Ox 98.2 F 69 16 111/87 H 99 08/25/20 02:17 08/25/20 02:17 08/25/20 02:17 08/25/20 02:17 08/25/20 02:17 - Laboratory Result Diagrams: 08/24/20 23:47 08/24/20 23:47 Discharge - Discharge Clinical Impression: Nausea vomiting and diarrhea, Body aches, Person under investigation for COVID- 19, Chills, Rash Condition: Stable Disposition: HOME, SELF-CARE Additional Instructions: Your laboratory work-up and evaluation are reassuring. This is most likely viral and should simply resolve with time. You have been tested for COVID-19, please quarantine while you are awaiting results, you will be contacted with these. See additional instructions on the form. I recommend Tylenol for chills, the Pepcid and Carafate for your stomach, Phenergan for nausea. In regards symptoms should simply resolve. After your nausea, vomiting, diarrhea, stomach symptoms have complete resolved if you still have the contact dermatitis/rash then you can fill and take the prednisone as prescribed to completion (I do NOT recommend that you immediately start taking these, only take if needed after recovery from viral symptoms). Return if you worsen including difficulty breathing, spiking fevers, severe worsening abdominal pain, uncontrolled vomiting, or any other concerning or worsening symptoms. Prescriptions: Sucralfate [Carafate 1 gm Tablet] 1 gm PO QID #20 tablet Prednisone [Deltasone 20 mg Tablet] 20 mg PO DAILY 21 Days #42 tablet Famotidine [Pepcid 20 mg Tablet] 20 mg PO BID #20 tablet Promethazine HCl [Phenergan 25 mg Tablet] 25 mg PO Q6H PRN #20 tablet PRN Reason: Forms: Return to Work
[2020-08-25 00:07] LABS: ABSOLUTE BASOPHILS # (AUTO) 0.1 10^3/uL (0.0-0.2); ABSOLUTE EOSINOPHILS # (AUTO) 0.3 10^3/uL (0.0-0.6); ABSOLUTE LYMPHOCYTES (AUTO) 2.7 10^3/uL (0.5-4.7); ABSOLUTE MONOCYTES (AUTO) 0.5 10^3/uL (0.1-1.4); ABSOLUTE NEUT (AUTO) 3.7 10^3/uL (1.7-8.2); EOSINOPHILS % (AUTO) 4.5 % (0-6); HEMATOCRIT 46.7 % (37.9-51.0); HEMOGLOBIN 16.3 g/dL (13.5-17.0); LYMPHOCYTES % (AUTO) 37.5 % (13-45); MEAN CORPUSCULAR HEMOGLOBIN 30.4 pg (27.0-33.4); MEAN CORPUSCULAR VOLUME 87 fl (80-97); MONOCYTES % (AUTO) 6.4 % (3-13); PLATELET COUNT 347 10^3/uL (150-450); RED BLOOD COUNT 5.38 10^6/uL (4.35-5.55); RED CELL DISTRIBUTION WIDTH 13.8 % (11.5-14.0); SEGMENTED NEUTROPHILS % (AUTO) 50.6 % (42-78); TOTAL CELLS COUNTED % (AUTO) 100 %; WHITE BLOOD COUNT 7.3 10^3/uL (4.0-10.5)
[2020-08-25 00:24] LABS: ALKALINE PHOSPHATASE 100 U/L (38-126); ANION GAP 12 (5-19); ASPARTATE AMINO TRANSFERASE 24 U/L (17-59); BILIRUBIN,DIRECT 0.2 mg/dL (0.0-0.4); BILIRUBIN,TOTAL 0.5 mg/dL (0.2-1.3); BLOOD UREA NITROGEN 18 mg/dL (7-20); CALCIUM 10.2 mg/dL (8.4-10.2); CARBON DIOXIDE 29 mmol/L (22-30); CHLORIDE 98 mmol/L (98-107); GLUCOSE 99 mg/dL (75-110); POTASSIUM 4.1 mmol/L (3.6-5.0); TOTAL PROTEIN 7.9 g/dL (6.3-8.2)
[2020-08-25] MEDS ORDERED: ONDANSETRON ODT 4 MG TAB (6 TAB/ER DISP) PO PRN (01:14)
[2020-08-25] MEDS ORDERED: SUCRALFATE 1 GM TABLET PO ONE (01:32)
[2020-08-25] MEDS ORDERED: FAMOTIDINE 20 MG TABLET PO ONE (01:32)
[2020-08-25 02:19] VITALS: BP 111/87
== END 2020-08-25 02:17 | disposition home or self-care (01) ==
LOC: ER 19:27
DX: R11.2 Nausea with vomiting, unspecified (principal); R19.7 Diarrhea, unspecified; M79.10 Myalgia, unspecified site; R68.83 Chills (without fever); R21 Rash and other nonspecific skin eruption; Z20.828 Contact with and (suspected) exposure to other viral communicable diseases; Z88.6 Allergy status to analgesic agent
CPT/HCPCS: 99284; 96361; 96374; 96375; 36415; 83690; 85025; 87635; 80053; J1885; J2405; J7120; C9803